=== PATIENT | female | born 1970 | race African-American/Black ===

== ENCOUNTER 2017-10-13 06:39 | Emergency (ER) | payer BC ==
[~2017-10-13] VITALS: Ht 157.5 cm; Wt 78.5 kg
[2017-10-13 06:44] VITALS: Ht 157.5 cm; Wt 78.5 kg
[2017-10-13 08:27] VITALS: BP 118/75
== END 2017-10-13 09:22 | disposition home or self-care (01) ==
LOC: ED 06:39
DX: L50.9 Urticaria, unspecified (principal); I10 Essential (primary) hypertension; E11.9 Type 2 diabetes mellitus without complications
CPT/HCPCS: 82962; J1200; J7512